=== PATIENT | female | born 1990 | race Caucasian/White ===

== ENCOUNTER 2024-01-20 22:16 | Emergency (ER) | payer OTHER ==
[~2024-01-20] VITALS: Ht 175.3 cm; Wt 117.9 kg
[2024-01-20 22:29] VITALS: BP_SYST 136; PULSE 134; RESP 18; TEMP 98.6; O2SAT 99
[2024-01-20 23:43] VITALS: BP_SYST 136; PULSE 134; RESP 22; TEMP 98.6; O2SAT 99
== END 2024-01-20 23:43 | disposition home or self-care (01) ==
LOC: SED 22:16
DX: T40.711A Poisoning by cannabis, accidental (unintentional), initial encounter (principal); F41.9 Anxiety disorder, unspecified; R00.0 Tachycardia, unspecified; R20.0 Anesthesia of skin; Z88.0 Allergy status to penicillin; Y92.89 Other specified places as the place of occurrence of the external cause
CPT/HCPCS: 99281